=== PATIENT | male | born 1960 | race Caucasian/White ===

== ENCOUNTER 2020-03-11 11:16 | Emergency (ER) | payer MEDICARE, MEDICAID, SELFPAY ==
[2020-03-11 11:40] VITALS: BP 151/78; PULSE 71; RESP 16; TEMP 37; O2SAT 98; BMI 26.6
--- NOTE | 2020-03-11 12:21 | ED.SKABFB ---
HPI - Skin/Abscess/Foreign Bdy General Chief complaint: Skin/Abscess/Foreign Body <ESTER Pelaez - Last Filed: 03/11/20 12:36> Stated complaint: INFECTED LEFT BREAST NIPPLE,AND LIP SORE <ESTER Pelaez - Last Filed: 03/11/20 12:36> Time Seen by Provider: 03/11/20 12:14 <ESTER Pelaez - Last Filed: 03/11/20 12:36> Source: patient <ESTER Pelaez - Last Filed: 03/11/20 12:36> Mode of arrival: ambulatory <ESTER Pelaez - Last Filed: 03/11/20 12:36> Limitations: no limitations <ESTER Pelaez - Last Filed: 03/11/20 12:36> History of Present Illness HPI narrative: 59 y/o male presenting with 3 days of worsening left nipple pain. He states it is starting to get red and it is more tender each day. He denies injury. Hx previous nipple piercing to that side, not present for years. Denies shaving the area recently. Denies fever, chills. <ESTER Pelaez - Last Filed: 03/11/20 12:36> MD complaint: other (tender area) <ESTER Pelaez - Last Filed: 03/11/20 12:36> Onset (ago): day(s) (3) <ESTER Pelaez - Last Filed: 03/11/20 12:36> Tetanus up to date: yes <ESTER Pelaez - Last Filed: 03/11/20 12:36> Location: chest <ESTER Pelaez - Last Filed: 03/11/20 12:36> Severity: moderate <ESTER Pelaez - Last Filed: 03/11/20 12:36> Severity scale (1-10): 5 <ESTER Pelaez - Last Filed: 03/11/20 12:36> Quality: aching <ESTER Pelaez - Last Filed: 03/11/20 12:36> Pain Consistency: constant <ESTER Pelaez - Last Filed: 03/11/20 12:36> Relieving factors: none <ESTER Pelaez Last Filed: 03/11/20 12:36> Exacerbating factors: palpation <ESTER Pelaez Last Filed: 03/11/20 12:36> Context: none <ESTER Pelaez Last Filed: 03/11/20 12:36> Associated symptoms: denies other symptoms <ESTER Pelaez Last Filed: 03/11/20 12:36> Treatments prior to arrival: none <ESTER Pelaez Last Filed: 03/11/20 12:36> Related Data Home medications: Previous Rx's Medication Instructions Recorded cephalexin [Keflex] 500 mg PO QID 28 Days #112 cap 03/11/20 doxycycline monohydrate 100 mg PO BID 7 Days #14 cap 03/11/20 <ESTER Pelaez Last Filed: 03/11/20 12:36> Allergies/Adverse reactions: Allergies Allergy/AdvReac Type Severity Reaction Status Date / Time No Known Allergies Allergy Verified 03/23/20 10:22 [No Known Allergies*] <ESTER Pelaez Last Filed: 03/11/20 12:36> Review of Systems Review of Systems: Constitutional: No Fever, No Chills Cardiovascular: No Chest Pain, No SOB Respiratory: No Cough, No Sputum Gastrointestinal: No Nausea, No Vomiting, No Diarrhea, No abdominal Pain Musculoskeletal: No joint pain, No Myalgias Skin: No Skin Lesions, No rash Neuro: No Weakness, No Numbness, No Dizziness, No Headache Psych: + Anxiety/Panic, No Depression Heme/Lymph: No Bruising, No Lymphadenopathy <ESTER Pelaez Last Filed: 03/11/20 12:36> PMFSH Past Medical History Attestation statement: The following information was validated with the patient. <ESTER Pelaez Last Filed: 03/11/20 12:36> Medical History: Medical History (Updated 03/23/20 @ 10:47 by Trell Aviles MD) Abscess of skin and subcutaneous tissue Cluster headaches No known health problems <ESTER Pelaez Last Filed: 03/11/20 12:36> Social History Social History: Social History Smoking Status: Never smoker <ESTER Pelaez - Last Filed: 03/11/20 12:36> Physical Exam Vital Signs: Vital Signs: Last Vital Signs Temp 98.6 F 03/11/20 11:40 Pulse 71 03/11/20 11:40 Resp 16 03/11/20 11:40 BP 151/78 H 03/11/20 11:40 Pulse Ox 98 03/11/20 11:40 Body Mass Index 26.6 Appearance: Alert. Oriented X3. No acute distress. HEENT: normal inspection CVS: Normal heart rate and rhythm. Pulses normal. Chest wall: left nipple normal inspection without drainage, tender, erythematous, indurated area at 9 o'clock, 3cm, no palpable mass or area of fluctuance Respiratory: No respiratory distress. Lungs CTAB. Skin: Skin warm and dry. Normal skin color. Normal skin turgor. No rashes. Extremities: atraumatic, no LE edema. Neuro: Oriented X 3. No motor deficit. No sensory deficit. <ESTER Pelaez - Last Filed: 03/11/20 12:36> Vital Signs: Last Vital Signs Temp 98.6 F 03/11/20 11:40 Pulse 71 03/11/20 11:40 Resp 16 03/11/20 11:40 BP 151/78 H 03/11/20 11:40 Pulse Ox 98 03/11/20 11:40 Body Mass Index 26.6 <Nikolay Connor MD - Last Filed: 04/01/20 08:43> Course Course Course Narrative: 59 y/o male presenting with left breast redness, tenderness. Exam is not consistent with abscess. No skin changes to suggest cancer. Will treat for cellulitis, patient counseled on warning signs that should prompt emergent re-evaluation. Stable for discharge. <ESTER Pelaez - Last Filed: 03/11/20 12:36> I have reviewed the chart <Nikolay Connor MD - Last Filed: 04/01/20 08:43> MDM - Skin/Abscess/Foreign Bdy Differential Diagnosis Differential diagnosis: Likely abscess of skin or subcutaneous tissue, urticaria, allergic reaction to drug, cellulitis, eczema, insect bites and contact dermatitis <ESTER Pelaez - Last Filed: 03/11/20 12:36> Critical Care Time Critical Care Time Critical Care Time: No <ESTER Pelaez Last Filed: 03/11/20 12:36> Discharge Plan Discharge Clinical Impression: Cellulitis, Cold sore <ESTER Pelaez Last Filed: 03/11/20 12:36> Patient Disposition: Home, Self-Care <ESTER Pelaez - Last Filed: 03/11/20 12:36> Instructions: Cellulitis (ED) <ESTER Pelaez - Last Filed: 03/11/20 12:36> Additional Instructions: Take the prescribed antibiotics until they are gone. If you have worsening pain, redness, warmth or develop fevers call your doctor or come back to the ER for further evaluation. Use over the counter, Abreva for your cold sore on your lip. If it gets worse, call your doctor. <ESTER Pelaez - Last Filed: 03/11/20 12:36> Prescriptions: New doxycycline monohydrate 100 mg capsule 100 mg PO BID 7 Days Qty: 14 RF: 0 cephalexin [Keflex] 500 mg capsule 500 mg PO QID 28 Days Qty: 112 RF: 0 <ESTER Pelaez - Last Filed: 03/11/20 12:36> Interventions: ED Discharge Assessment Last Done: 03/11/20 12:43 <ESTER Pelaez - Last Filed: 03/11/20 12:36> Discharge Date/Time: 03/11/20 12:44 <ESTER Pelaez Last Filed: 03/11/20 12:36>
== END 2020-03-11 12:44 | disposition home or self-care (01) ==
LOC: HO.ED 12:27
PROVIDERS: Emergency Provider Emergency Medicine
DX: L03.313 Cellulitis of chest wall (principal); N64.4 Mastodynia; Z79.899 Other long term (current) drug therapy
CPT/HCPCS: 99283

== ENCOUNTER 2020-03-17 14:24 | Emergency (ER) | payer MEDICARE, MEDICAID, SELFPAY ==
[2020-03-17 14:44] VITALS: BP 136/70; PULSE 75; RESP 18; TEMP 36.9; O2SAT 95; BMI 26.6
--- NOTE | 2020-03-17 16:29 | PC.NURSE ---
dr bueno at bedside for exam, i&d and specimen collection
--- NOTE | 2020-03-17 16:34 | ED.SKABFB ---
HPI - Skin/Abscess/Foreign Bdy General Chief complaint: Skin/Abscess/Foreign Body Stated complaint: BLOOD INFECTION Time Seen by Provider: 03/17/20 15:23 Source: patient Mode of arrival: ambulatory Limitations: no limitations History of Present Illness HPI narrative: patient Came with left breast swelling and redness which is going on for last 1 week from a unknown injury patient was seen here on 03/11 and started on doxycycline and Keflex since yesterday patient noticed swelling is bigger and redness has increased with small amount of pus discharge patient denies any fever Related Data Previous Rx's Medication Instructions Recorded cephalexin [Keflex] 500 mg PO QID 28 Days #112 cap 03/11/20 doxycycline monohydrate 100 mg PO BID 7 Days #14 cap 03/11/20 Allergies Allergy/AdvReac Type Severity Reaction Status Date / Time No Known Allergies Allergy Unverified 12/24/19 14:53 [No Known Allergies*] Review of Systems Review of Systems: Yes all other systems are reviewed and are negative PMFSH Past Medical History Medical History No known health problems Social History Social History Advance Directives: No Advance Directives Information Provided: Yes Physical Exam Vital Signs: Vital Signs: Last Vital Signs Temp 98.4 F 03/17/20 14:44 Pulse 75 03/17/20 14:44 Resp 18 03/17/20 14:44 BP 136/70 03/17/20 14:44 Pulse Ox 95 03/17/20 14:44 Body Mass Index 26.6 Const: General: cooperative, comfortable and no acute distress Orientation/consciousness: patient oriented x3 Chest: Chest/axillae images: 1. small abscess 3 cm in diameter with redness, pointing Resp: Effort & Inspection: normal respiratory effort Auscultation: clear to auscultation bilaterally Neuro: General: patient oriented x3 Course Course Course Narrative: patient has small abscess pointing left breast which was easily squeezed out no more fluctuancy noticed patient to continue doxycycline and Keflex and advised to follow with surgeon for further evaluation and treatment Procedures Abscess I/D Site: chest Side (if applicable): left Amount of fluid expressed (mL): 2 Sent for culture/gram staining?: Yes Discharge Plan Discharge Clinical Impression: Abscess of skin or subcutaneous tissue Patient Disposition: Home, Self-Care Instructions: Abscess (ED) Additional Instructions: continue antibiotics as advised warm packs follow up with surgeon Prescriptions: No Action doxycycline monohydrate 100 mg capsule 100 mg PO BID 7 Days Qty: 14 RF: 0 cephalexin [Keflex] 500 mg capsule 500 mg PO QID 28 Days Qty: 112 RF: 0 Referrals: Trell Aviles MD [Physician] - 3 days Discharge Date/Time: 03/17/20 16:39
[2020-03-17 16:37] VITALS: BP 141/88; PULSE 69; RESP 18; TEMP 36.9; O2SAT 96
== END 2020-03-17 16:39 | disposition home or self-care (01) ==
PROVIDERS: Emergency Provider Internal Medicine
DX: N61.1 Abscess of the breast and nipple (principal)
CPT/HCPCS: 10060; 87071; 87205; 99283

== ENCOUNTER → 2020-03-23 10:13 | Outpatient (BNVA) | payer MEDICARE, MEDICAID, SELFPAY | PROVIDERS: Visit Provider Surgery | DX: L02.91 Cutaneous abscess, unspecified (principal) | CPT/HCPCS: 99202 ==

== ENCOUNTER 2020-11-07 10:49 | Emergency (ER) | payer OTHER, MEDICARE, MEDICAID, SELFPAY ==
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
[2020-11-07 12:08] VITALS: BP 145/96; PULSE 62; RESP 18; TEMP 37.2; O2SAT 99; BMI 25.1
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
== END 2020-11-07 16:37 | disposition home or self-care (01) ==
PROVIDERS: Emergency Provider Emergency Medicine
DX: S39.012A Strain of muscle, fascia and tendon of lower back, initial encounter (principal); V43.52XA Car driver injured in collision with other type car in traffic accident, initial encounter; Y93.89 Activity, other specified; Y92.414 Local residential or business street as the place of occurrence of the external cause; Y99.9 Unspecified external cause status
CPT/HCPCS: 72070; 99283

== ENCOUNTER 2020-11-14 09:25 | Outpatient (REF) | payer OTHER, MEDICARE, MEDICAID, SELFPAY ==
--- NOTE | ~2020-11-14 | XR_ITS ---
EXAMINATION: XR CHEST CLINICAL INFORMATION: COPD. COMPARISON: None TECHNIQUE: 2 views of the chest were obtained. FINDINGS: Some probable chronic markings are present here. There is no convincing evidence for an acute infiltrate. There is no effusion. The heart size is within normal limits. The hilar structures do not appear pathologically enlarged. On the lateral study, there is a rounded structure overlying the lower thoracic vertebrae. This measures 2.9 cm. This could represent a prominent osteophyte. I would recommend CT to exclude a lesion. XR/XR chest 2V IMPRESSION: As described above, I must consider a basilar lung lesion based on the lateral study. CT is recommended for full evaluation. Otherwise no acute finding.
[2020-11-14 10:07] LABS: MANUAL DIFF FLAG NO
[2020-11-14 10:13] LABS: Basophils Percent Auto 0.3 % (0-2); Eosinophils Absolute Auto 0.1 X10*3/uL (0.0-0.4); Eosinophils Percent Auto 0.7 % (0-4); Hematocrit 42.1 % (42-52); Imm Gran Abs Auto 0.03 X10*3/uL (0.00-0.03); Imm Gran Pct Auto 0.3 % (0.0-0.4); Lymphocytes Absolute Auto 2.5 X10*3/uL (1.2-4.9); Lymphocytes Percent Auto 23.5 % (20-40); Mean Corpuscular HGB Conc 33.3 g/dl (31.0-36.0); Mean Corpuscular Hemoglobin 29.4 pg (27.0-33.0); Mean Corpuscular Volume 88.4 fL (80-98); Monocytes Absolute Auto 0.6 X10*3/uL (0.1-1.2); Monocytes Percent Auto 5.8 % (2-11); Neutrophils Absolute Auto 7.3 X10*3/uL (2.0-8.3); Neutrophils Percent Auto 69.4 % (45-73); Platelet Count 343 X10*3/uL (160-400); Red Blood Count 4.76 X10*6/uL (4.60-5.80); Red Cell Distribution Width 13.5 % (11.0-16.0); White Blood Count 10.4 X10*3/uL (4.8-10.8)
[2020-11-14 10:33] LABS: Alanine Aminotransferase 19 U/L (0-40); Albumin Level 4.4 g/dL (3.5-5.0); Alkaline Phosphatase 84 U/L (39-117); Anion Gap 11 (12-20); Aspartate Amino Transferase 19 U/L (5-37); Bilirubin Total 1.3 mg/dL (0.0-1.0); Blood Urea Nitrogen 16 mg/dL (9-16); Carbon Dioxide 28 mmol/L (22-29); Chloride 103 mmol/L (96-108); Cholesterol 215 mg/dL; Estimated Glomerular Filt Rate > 60; Glucose Fasting 118 mg/dL (60-99); HDL Cholesterol 44 mg/dL; LDL Cholesterol Calculated 145 mg/dl; Potassium 4.2 mmol/L (3.3-5.1); Sodium 138 mmol/L (135-145); Total Protein 6.5 g/dL (6.5-8.0); Triglycerides 130 mg/dL
[2020-11-14 10:58] LABS: Prostate Specific Antigen 2.91 ng/mL (<0.05-4.0)
== END 2020-11-14 09:26 | disposition home or self-care (01) ==
LOC: HO.LAB 09:25
PROVIDERS: PCP Internal Medicine Medical Oncology; Visit Provider Internal Medicine Medical Oncology
DX: Z12.5 Encounter for screening for malignant neoplasm of prostate (principal); J44.9 Chronic obstructive pulmonary disease, unspecified; N40.0 Benign prostatic hyperplasia without lower urinary tract symptoms
CPT/HCPCS: 36415; 71046; 80053; 80061; 84153; 85025

== ENCOUNTER 2021-01-12 10:32 | Outpatient (REF) | payer MEDICARE, MEDICAID, SELFPAY ==
[2021-01-12 10:47] LABS: MANUAL DIFF FLAG NO
[2021-01-12 12:08] LABS: Basophils Percent Auto 0.5 % (0-2); Eosinophils Absolute Auto 0.1 X10*3/uL (0.0-0.4); Eosinophils Percent Auto 1.6 % (0-4); Hematocrit 45.6 % (42-52); Hemoglobin 15.4 g/dl (14.0-18.0); Imm Gran Abs Auto 0.03 X10*3/uL (0.00-0.03); Imm Gran Pct Auto 0.3 % (0.0-0.4); Lymphocytes Absolute Auto 2.6 X10*3/uL (1.2-4.9); Lymphocytes Percent Auto 28.7 % (20-40); Mean Corpuscular HGB Conc 33.8 g/dl (31.0-36.0); Mean Corpuscular Hemoglobin 30.3 pg (27.0-33.0); Mean Corpuscular Volume 89.8 fL (80-98); Mean Platelet Volume 10.1 fL (9.4-12.4); Monocytes Absolute Auto 0.6 X10*3/uL (0.1-1.2); Monocytes Percent Auto 6.2 % (2-11); Neutrophils Absolute Auto 5.6 X10*3/uL (2.0-8.3); Neutrophils Percent Auto 62.7 % (45-73); Platelet Count 336 X10*3/uL (160-400); Red Blood Count 5.08 X10*6/uL (4.60-5.80); Red Cell Distribution Width 13.8 % (11.0-16.0); White Blood Count 8.9 X10*3/uL (4.8-10.8)
[2021-01-12 12:34] LABS: Alanine Aminotransferase 26 U/L (0-40); Albumin Level 4.2 g/dL (3.5-5.0); Alkaline Phosphatase 87 U/L (39-117); Anion Gap 10 (12-20); Aspartate Amino Transferase 17 U/L (5-37); Bilirubin Total < 0.2 mg/dL (0.0-1.0); Blood Urea Nitrogen 13 mg/dL (9-16); Calcium 9.3 mg/dL (8.4-10.2); Carbon Dioxide 28 mmol/L (22-29); Chloride 106 mmol/L (96-108); Estimated Glomerular Filt Rate > 60; Glucose Random 152 mg/dL (60-115); Potassium 4.7 mmol/L (3.3-5.1); Sodium 139 mmol/L (135-145); Total Protein 6.5 g/dL (6.5-8.0)
[2021-01-12 13:06] LABS: Erythrocyte Sedimentation Rate 2 MM/HR (0-15)
== END 2021-01-12 10:33 | disposition home or self-care (01) ==
LOC: HO.LAB 10:32
PROVIDERS: PCP Internal Medicine Medical Oncology; Visit Provider Internal Medicine Medical Oncology
DX: E66.3 Overweight (principal)
CPT/HCPCS: 36415; 80053; 85025; 85652

== ENCOUNTER 2021-01-25 10:01 | Outpatient (REF) | payer OTHER, MEDICARE, MEDICAID, SELFPAY ==
--- NOTE | ~2021-01-25 | CT_ITS ---
EXAMINATION: CT CHEST WITH CONTRAST CLINICAL INFORMATION: Localized swelling, mass or lump of the trunk. COMPARISON: Previous chest x-ray November 2020. TECHNIQUE: Multidetector volumetric CT imaging of the chest was obtained after the administration of 65 mL of Omnipaque 350 intravenous contrast without immediate adverse reactions. Axial MIP volume rendering provided. Sagittal and coronal reformatted images were obtained. This CT examination was performed using dose optimization techniques as appropriate, variously including the following: *Automated exposure control. *Adjustment of mA and/or kV according to patient size (this includes techniques or standardized protocols for targeted exams where dose is matched to indication/reason for exam; i.e. extremities or head). *Use of iterative reconstruction technique. DLP: 141 mGy-cm FINDINGS: STEM SHAPER: Unremarkable. LUNGS: There is a 2 mm peripheral right upper lobe nodule axial image 7. There is a 3 mm peripheral or subpleural right middle lobe nodule axial image 127 series 7. There is a 3 mm peripheral or subpleural right lower lobe nodule near the major fissure axial image 142 series 7. The lungs are otherwise clear. MEDIASTINUM: There is mild coronary artery calcification. The mediastinum is otherwise normal. PLEURA: There is no pleural effusion. No pleural mass or thickening. AXILLA: No lymphadenopathy. UPPER ABDOMEN: Unremarkable. OSSEOUS STRUCTURES: There are degenerative changes of the spine. There are degenerative changes at the sternomanubrial joints, right greater than left. CT/CT chest w con IMPRESSION: 1. Small pulmonary nodules or micronodules. According to the UPDATED 2017 Fleischner Society recommendations, the advised follow up imaging for less than 6 mm nodule: Low risk, no chest CT follow up and high risk, optional chest CT follow up in one year. 2. Mild coronary artery calcification. 3. No chest wall mass seen.
[2021-01-25] MEDS: iohexoL 350 MG/ML 100 ML INFUS..BTL IV (10:47)
== END 2021-01-25 10:02 | disposition home or self-care (01) ==
LOC: HO.CT 10:01
PROVIDERS: PCP Internal Medicine Medical Oncology; Visit Provider Internal Medicine Medical Oncology
DX: R22.2 Localized swelling, mass and lump, trunk (principal)
CPT/HCPCS: 71260; Q9967

== ENCOUNTER → 2021-05-02 14:26 | Outpatient (BNVA) | payer MEDICARE, MEDICAID, SELFPAY | PROVIDERS: PCP Internal Medicine Medical Oncology; Visit Provider Nurse Practitioner Family | DX: M47.27 Other spondylosis with radiculopathy, lumbosacral region (principal) | CPT/HCPCS: 99202 ==

== ENCOUNTER 2021-05-23 14:25 | Outpatient (REF) | payer MEDICARE, MEDICAID, SELFPAY ==
--- NOTE | ~2021-05-23 | XR_ITS ---
EXAMINATION: PRE-MRI ORBITS CLINICAL INFORMATION: Medical visualized 20 years ago. COMPARISON: None TECHNIQUE: 3 views. FINDINGS: There is no radiopaque metallic foreign body seen in the orbits. There is radiopaque artificial tooth or dental filling in the left upper maxilla. XR/XR pre mri screening IMPRESSION: With no radiopaque foreign body seen in the orbits.
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
== END 2021-05-23 14:26 | disposition home or self-care (01) ==
LOC: HO.MRI 14:25
PROVIDERS: Visit Provider Nurse Practitioner Family
DX: M47.27 Other spondylosis with radiculopathy, lumbosacral region (principal)
CPT/HCPCS: 72148

== ENCOUNTER 2021-05-30 12:44 | Outpatient (REF) | payer MEDICARE, MEDICAID, SELFPAY ==
--- NOTE | ~2021-05-30 | MR_ITS ---
EXAMINATION: MR CERVICAL SPINE WITHOUT CONTRAST CLINICAL INFORMATION: Neuropathic pain down both arms. Assess for herniated disc. COMPARISON: There are no prior studies available for comparison. TECHNIQUE: MRI of the cervical spine was obtained using routine sequences without contrast. FINDINGS: VERTEBRAL BODIES AND PARASPINAL SOFT TISSUES: There is mild reversal of the cervical lordosis at C5-C6. There is a mild anterolisthesis of C7 on T1. There is marked narrowing of intervertebral disc height at C6-C7 and there are degenerative endplate contour changes at multiple levels with mild to moderate edematous signal particularly toward the right. Mild edematous endplate signal changes are seen at C4-C5 and C5-C6. There is also moderate narrowing of intervertebral disc height at C6-C7. The vertebral bodies of normal height and contour no fractures are demonstrated. Overall, marrow signal is homogenous. The visualized regional soft tissue structures are unremarkable. CERVICOMEDULLARY JUNCTION AND VISUALIZED POSTERIOR FOSSA: The craniocervical and posterior fossa structures are normal. Accounting for artifact, spinal cord signal appears normal. SPINAL LEVELS: C2-C3: There is mild left facet arthropathy. There is a small right paracentral disc protrusion with minimal mass effect on the thecal sac. There is no spinal cord compression or central stenosis. There is mild left foraminal narrowing. C3-C4: There is mild bilateral facet arthropathy. There is a broad-based posterior disc protrusion which effaces CSF ventral to the spinal cord but there is no spinal cord compression or central stenosis. There are uncovertebral osteophytes, and there is mild bilateral foraminal narrowing. C4-C5: There is mild bilateral facet arthropathy. There is a shallow posterior disc protrusion which is slightly more prominent on the right and there is minimal distortion of the CSF ventral to the spinal cord. There is no spinal cord compression or central stenosis. There are uncovertebral osteophytes and there is moderate right foraminal narrowing. C5-C6: The facet joints appear normal. There is a broad-based posterior disc protrusion which effaces CSF ventral to the spinal cord, with mild flattening of the spinal cord. There is mild to moderate central stenosis. There are uncovertebral osteophytes and there is severe bilateral foraminal narrowing., C6-C7: The facet joints appear normal. There is a prominent broad-based posterior disc protrusion with effacement of CSF and with mild flattening of the cord. There is moderate central stenosis. There are uncovertebral osteophytes, and there is severe right and moderate to severe left foraminal narrowing. C7-T1: There is mild bilateral facet arthropathy. Posterior disc contour is normal. There is no central stenosis or foraminal narrowing. MR/MR cervical spine wo con IMPRESSION: 1. At C5-C6 there is a broad-based posterior disc protrusion with mild flattening of the cord and there is mild to moderate central stenosis. There is severe bilateral foraminal narrowing. 2. At C6-C7 there is a prominent broad-based posterior disc protrusion without spinal cord compression, but there is moderate central stenosis. There is severe right and moderate to severe left foraminal narrowing. 3. At C4-C5 there is a shallow posterior disc protrusion without spinal cord compression or central stenosis. There is moderate right foraminal narrowing.
== END 2021-05-30 12:45 | disposition home or self-care (01) ==
LOC: HO.MRI 12:44
PROVIDERS: Visit Provider Internal Medicine Medical Oncology
DX: M79.2 Neuralgia and neuritis, unspecified (principal)
CPT/HCPCS: 72141

== ENCOUNTER 2022-05-11 12:59 | Outpatient (REF) | payer MEDICARE, MEDICAID, SELFPAY ==
[2022-05-11 13:23] LABS: MANUAL DIFF FLAG NO
[2022-05-11 13:47] LABS: Basophils Absolute Auto 0.1 X10*3/uL (0.0-0.2); Basophils Percent Auto 0.6 % (0-2); Eosinophils Absolute Auto 0.1 X10*3/uL (0.0-0.4); Eosinophils Percent Auto 1.3 % (0-4); Hematocrit 45.1 % (42.0-52.0); Hemoglobin 14.9 g/dl (14.0-18.0); Imm Gran Abs Auto 0.02 X10*3/uL (0.00-0.03); Imm Gran Pct Auto 0.3 % (0.0-0.4); Lymphocytes Absolute Auto 1.7 X10*3/uL (1.2-4.9); Lymphocytes Percent Auto 21.7 % (20-40); Mean Corpuscular Hemoglobin 29.2 pg (27.0-33.0); Mean Corpuscular Volume 88.3 fL (80.0-98.0); Mean Platelet Volume 9.6 fL (9.4-12.4); Monocytes Absolute Auto 0.9 X10*3/uL (0.1-1.2); Monocytes Percent Auto 11.8 % (2-11); Neutrophils Absolute Auto 5.1 x10*3/uL (2.0-8.3); Neutrophils Percent Auto 64.3 % (45-73); Platelet Count 307 X10*3/uL (160-400); Red Blood Count 5.11 X10*6/uL (4.60-5.80); Red Cell Distribution Width 14.1 % (11.0-16.0); White Blood Count 7.9 X10*3/uL (4.8-10.8)
[2022-05-11 14:45] LABS: Alanine Aminotransferase 23 U/L (0-40); Albumin Level 4.1 g/dL (3.5-5.0); Alkaline Phosphatase 117 U/L (39-117); Anion Gap 12 (12-20); Aspartate Amino Transferase 20 U/L (5-37); Bilirubin Total 1.2 mg/dL (0.0-1.0); Blood Urea Nitrogen 10 mg/dL (9-16); Calcium 9.2 mg/dL (8.4-10.2); Carbon Dioxide 31 mmol/L (22-29); Chloride 100 mmol/L (96-108); Cholesterol 250 mg/dL; Estimated Glomerular Filt Rate > 60; Glucose Random 98 mg/dL (60-115); HDL Cholesterol 46 mg/dL; LDL Cholesterol Calculated 163 mg/dl; Potassium 4.7 mmol/L (3.3-5.1); Sodium 138 mmol/L (135-145); Total Protein 6.4 g/dL (6.5-8.0); Triglycerides 205 mg/dL
[2022-05-11 15:08] LABS: PSA,Total (Free>4and<10) 1.55 ng/mL (0.00-4.00); Vitamin B12 214 pg/mL (200-900)
== END 2022-05-11 13:00 | disposition home or self-care (01) ==
LOC: HO.LAB 12:59
PROVIDERS: PCP Internal Medicine Medical Oncology; Visit Provider Internal Medicine Medical Oncology
DX: Z12.5 Encounter for screening for malignant neoplasm of prostate (principal); N40.0 Benign prostatic hyperplasia without lower urinary tract symptoms; J44.9 Chronic obstructive pulmonary disease, unspecified; R41.3 Other amnesia; E66.3 Overweight; G44.019 Episodic cluster headache, not intractable
CPT/HCPCS: 36415; 80053; 80061; 82306; 82607; 84153; 85025

== ENCOUNTER 2022-06-05 18:48 | Outpatient (REF) | payer MEDICARE, MEDICAID, SELFPAY ==
--- NOTE | ~2022-06-05 | MR_ITS ---
EXAMINATION: MR CERVICAL SPINE WITHOUT CONTRAST MR LUMBAR SPINE WITHOUT CONTRAST CLINICAL INFORMATION: Neuropathy, radiculopathy COMPARISON: None TECHNIQUE: MRI of the cervical and lumbar spine was obtained using routine sequences without contrast. FINDINGS: CERVICAL SPINE: The craniocervical junction is intact. The cervical lordosis is preserved. Trace anterolisthesis of C4 and C5 and trace retrolisthesis of C6 on C7. Vertebral body heights are normal without acute compression fracture. No suspicious osseous lesion. There is diffuse disc desiccation with moderate to severe C5-C6 and to a lesser extent C6-C7 disc height loss. Dominantly type II Modic endplate changes at C5-C6 and mixed type I and II Modic endplate changes at C6-C7. There are multilevel degenerative changes with level by level detail as follows: C2-C3: Asymmetric left facet arthrosis and left uncovertebral spurring. No spinal canal or significant neural foraminal stenosis. C3-C4: Small disc osteophyte complex with left greater than right uncovertebral joint hypertrophy and left greater than right facet arthrosis. No spinal canal stenosis. Mild right greater than left neural foraminal stenosis. C4-C5: Small disc osteophyte complex with uncovertebral joint hypertrophy and mild bilateral facet hypertrophy. No spinal canal stenosis. Moderate right without significant left neural foraminal stenosis. C5-C6: Small disc osteophyte complex with uncovertebral joint hypertrophy and mild bilateral facet arthrosis. No spinal canal stenosis. Severe right and moderate to severe left neural foraminal stenosis. C6-C7: Trace retrolisthesis with disc osteophyte complex and uncovertebral joint hypertrophy with mild bilateral facet arthrosis. Mild to moderate spinal canal stenosis with contact and flattening along the ventral cord. Severe bilateral neural foraminal stenosis. C7-T1: Small annular disc bulge with mild bilateral facet arthrosis. No spinal canal or significant neural foraminal stenosis. The cervical spinal cord is normal in signal and morphology. No epidural fluid collection, mass, or hematoma. No significant abnormalities of the paraspinal musculature. The flow voids of the major cervical vessels are maintained. The visualized intracranial structures are normal. Cystic lesion associated with a right anterior maxillary tooth, likely a prominent periapical lucency. No demonstrated abnormalities in the visualized neck. LUMBAR SPINE: Normal lumbar lordosis is preserved. There is trace retrolisthesis of L1 on L2 and L5 on S1. Vertebral body heights are maintained. There is no suspicious osseous lesion. There is multilevel disc desiccation with mild to moderate L1-L2 and L5-S1 disc height loss. Multilevel mild fatty endplate changes anteriorly and edematous endplate changes, most pronounced on the right at L5-S1. A 7 mm T1 hypointense and T2/STIR hyperintense lesion within the L5 vertebral body with minimal interdigitating fat inferiorly is favored to reflect a lipid poor hemangioma. Multilevel anterior osteophytic spurring is seen.There are multilevel degenerative changes with level by level detail as follows: L1-L2: Small annular disc bulge with superimposed right foraminal/far lateral disc protrusion and mild bilateral facet hypertrophy and ligamentum flavum thickening. Mild spinal canal stenosis and abutment along the left greater than right traversing L2 nerve roots. Mild right without left neural foraminal encroachment. L2-L3: Mild bilateral facet hypertrophy and ligamentum flavum thickening. No spinal canal or neural foraminal stenosis. L3-L4: Right foraminal/far lateral disc protrusion superimposed on a trace annular disc bulge. Mild bilateral facet hypertrophy. No spinal canal or left neural foraminal stenosis. Mild right neural foraminal encroachment. L4-L5: Small annular disc bulge with mild to moderate facet hypertrophy. No spinal canal stenosis. Mild right without significant left neural foraminal stenosis. L5-S1: Annular disc bulge with superimposed broad-based left subarticular disc protrusion with annular fissure and prominent left ventral lateral disc osteophyte. Moderate facet arthrosis. No spinal canal stenosis, noting asymmetric left subarticular zone stenosis and mass effect along the traversing left and likely abutment along the traversing right S1 nerve roots Severe left neural foraminal stenosis with compression of the exiting left L5 nerve root. Mild right neural foraminal stenosis. The conus medullaris terminates at the level of L1. The distal spinal cord is normal in appearance. . No epidural fluid collection, hematoma, or mass. No significant abnormalities of the paraspinal musculature. Limited evaluation of the intra-abdominal structures without significant abnormalities. The abdominal aorta is of normal contour and caliber. MR/MR cervical spine wo con IMPRESSION: CERVICAL SPINE: 1. Multilevel cervical spondylosis as described, most notable at C6-C7 where there is mild to moderate spinal canal stenosis and severe bilateral neural foraminal stenosis. No other significant spinal canal stenosis. Neural foraminal stenosis is severe on the right and moderate to severe on the left at C5-C6. 2. No cord signal abnormality. LUMBAR SPINE: 1. Multilevel lumbar spondylosis as described, worst at L5-S1 where there is severe left neural foraminal stenosis with compression of the exiting left L5 nerve root and asymmetric left subarticular zone stenosis with mass effect along the left S1 nerve root. 2. At L1-L2, there is mild spinal canal stenosis and abutment of the left greater than right L2 nerve roots. 3. 7 mm T1 hypointense and T2/STIR hyperintense lesion in the L5 vertebral body is favored to reflect a lipid poor hemangioma.
== END 2022-06-05 18:49 | disposition home or self-care (01) ==
LOC: HO.MRI 18:48
PROVIDERS: PCP Internal Medicine Medical Oncology; Visit Provider Internal Medicine
DX: M47.22 Other spondylosis with radiculopathy, cervical region (principal); G62.9 Polyneuropathy, unspecified
CPT/HCPCS: 72141; 72148

== ENCOUNTER → 2022-08-29 13:39 | Outpatient (BNVA) | payer MEDICARE, MEDICAID, SELFPAY | PROVIDERS: PCP Internal Medicine Medical Oncology; Visit Provider Anesthesiology | DX: M47.27 Other spondylosis with radiculopathy, lumbosacral region (principal); M47.816 Spondylosis without myelopathy or radiculopathy, lumbar region | CPT/HCPCS: 99212 ==

== ENCOUNTER 2022-11-19 10:23 | Outpatient (REF) | payer MEDICARE, MEDICAID, SELFPAY ==
[2022-11-19 10:34] LABS: MANUAL DIFF FLAG NO
[2022-11-19 10:48] LABS: Basophils Absolute Auto 0.1 X10*3/uL (0.0-0.2); Basophils Percent Auto 0.6 % (0-2); Eosinophils Absolute Auto 0.5 X10*3/uL (0.0-0.4); Eosinophils Percent Auto 4.6 % (0-4); Hematocrit 43.4 % (42.0-52.0); Hemoglobin 14.2 g/dl (14.0-18.0); Imm Gran Abs Auto 0.04 X10*3/uL (0.00-0.03); Imm Gran Pct Auto 0.3 % (0.0-0.4); Lymphocytes Absolute Auto 2.8 X10*3/uL (1.2-4.9); Lymphocytes Percent Auto 23.3 % (20-40); Mean Corpuscular HGB Conc 32.7 g/dl (31.0-36.0); Mean Corpuscular Volume 91.8 fL (80.0-98.0); Mean Platelet Volume 9.5 fL (9.4-12.4); Monocytes Absolute Auto 0.7 X10*3/uL (0.1-1.2); Monocytes Percent Auto 5.5 % (2-11); Neutrophils Absolute Auto 7.8 x10*3/uL (2.0-8.3); Neutrophils Percent Auto 65.7 % (45-73); Platelet Count 356 X10*3/uL (160-400); Red Blood Count 4.73 X10*6/uL (4.60-5.80); Red Cell Distribution Width 13.4 % (11.0-16.0); White Blood Count 11.9 X10*3/uL (4.8-10.8)
[2022-11-19 11:59] LABS: Alanine Aminotransferase 24 U/L (0-40); Albumin Level 3.9 g/dL (3.5-5.0); Alkaline Phosphatase 89 U/L (39-117); Anion Gap 10 (12-20); Aspartate Amino Transferase 26 U/L (5-37); Bilirubin Total 0.2 mg/dL (0.0-1.0); Blood Urea Nitrogen 11 mg/dL (9-16); Calcium 9.3 mg/dL (8.4-10.2); Carbon Dioxide 29 mmol/L (22-29); Chloride 105 mmol/L (96-108); Cholesterol 219 mg/dL; Estimated Glomerular Filt Rate > 60; Glucose Fasting 149 mg/dL (60-99); HDL Cholesterol 46 mg/dL; LDL Cholesterol Calculated 125 mg/dl; Potassium 4.4 mmol/L (3.3-5.1); Sodium 140 mmol/L (135-145); Total Protein 6.7 g/dL (6.5-8.0); Triglycerides 241 mg/dL
[2022-11-19 12:11] LABS: Prostate Specific Antigen 1.25 ng/mL (<0.05-4.0)
== END 2022-11-19 10:24 | disposition home or self-care (01) ==
LOC: HO.LAB 10:23
PROVIDERS: PCP Internal Medicine Medical Oncology; Visit Provider Internal Medicine Medical Oncology
DX: Z00.00 Encounter for general adult medical examination without abnormal findings (principal); Z12.5 Encounter for screening for malignant neoplasm of prostate; N40.0 Benign prostatic hyperplasia without lower urinary tract symptoms; E66.3 Overweight
CPT/HCPCS: 36415; 80053; 80061; 84153; 85025

== ENCOUNTER 2023-10-28 12:37 | Outpatient (AMB) | payer MEDICARE, MEDICAID, SELFPAY ==
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
[2023-10-28 12:46] VITALS: BP 142/80; PULSE 66; RESP 17; O2SAT 96; BMI 27.2
== END 2023-10-28 13:53 | disposition home or self-care (01) ==
PROVIDERS: PCP Internal Medicine Medical Oncology; Visit Provider Psychiatry & Neurology Neurology
DX: R41.89 Other symptoms and signs involving cognitive functions and awareness (principal); G44.009 Cluster headache syndrome, unspecified, not intractable; R06.83 Snoring; G47.10 Hypersomnia, unspecified
CPT/HCPCS: 99204; G2211

== ENCOUNTER → 2023-10-28 12:37 | Outpatient (BNVA) | payer MEDICARE, MEDICAID, SELFPAY | PROVIDERS: PCP Internal Medicine Medical Oncology; Visit Provider Psychiatry & Neurology Neurology | DX: R41.89 Other symptoms and signs involving cognitive functions and awareness (principal); R06.83 Snoring; G44.009 Cluster headache syndrome, unspecified, not intractable; G47.10 Hypersomnia, unspecified | CPT/HCPCS: 99202 ==

== ENCOUNTER → 2023-12-11 09:05 | Outpatient (REF) | payer MEDICARE, MEDICAID, SELFPAY | LOC: HO.SL 09:05 | PROVIDERS: PCP Internal Medicine Medical Oncology; Visit Provider Psychiatry & Neurology Neurology | DX: R06.83 Snoring (principal); G47.10 Hypersomnia, unspecified | CPT/HCPCS: 95806 ==

== ENCOUNTER → 2023-12-11 09:19 | Outpatient (BNV) | payer MEDICARE, MEDICAID, SELFPAY | PROVIDERS: PCP Internal Medicine Medical Oncology; Visit Provider Psychiatry & Neurology Neurology | DX: R06.83 Snoring (principal); G47.10 Hypersomnia, unspecified | CPT/HCPCS: 95806 ==

== ENCOUNTER → 2024-01-06 17:56 | Outpatient (BNV) | payer MEDICARE, MEDICAID, SELFPAY | PROVIDERS: PCP Internal Medicine Medical Oncology; Visit Provider Radiology Diagnostic Radiology | DX: R41.89 Other symptoms and signs involving cognitive functions and awareness (principal) | CPT/HCPCS: 70551 ==

== ENCOUNTER 2024-01-06 17:57 | Outpatient (REF) | payer MEDICARE, MEDICAID, SELFPAY ==
--- NOTE | ~2024-01-06 | MR_ITS ---
EXAMINATION: MR BRAIN WITHOUT CONTRAST CLINICAL INFORMATION: Cognitive functions decline. COMPARISON: None available. TECHNIQUE: MRI of the brain was obtained using routine sequences without contrast. FINDINGS: Submitted for interpretation on 02/07/2024. Macrocystic encephalomalacia with associated hyperintense T2 FLAIR signal likely gliosis and susceptibility related to old blood products, right frontal orbital gyrus and deep white matter and to a lesser extent rectus gyrus. Hyperintense T2 FLAIR signal within the subcortical deep white matter of the left orbital frontal gyrus. No restricted diffusion. No acute intracranial hemorrhage, mass effect, midline shift, hydrocephalus or herniation. Garza-white matter differentiation is normal. No signal abnormality or volume loss in the hippocampi. Posterior cranial fossa contents demonstrated no acute intracranial hemorrhage or mass effect. Sellar/suprasellar region is normal. Craniocervical junction is intact and normal. Flow-void signal within the main cerebral vessels is normal. MR/MR head/brain wo con IMPRESSION: No acute brain abnormality. 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 Electronically signed by: Tay Jaramillo MD 02/07/2024 09:18 AM EDT
== END 2024-01-06 17:58 | disposition home or self-care (01) ==
LOC: HO.MRI 17:57
PROVIDERS: PCP Internal Medicine Medical Oncology; Visit Provider Psychiatry & Neurology Neurology
DX: R41.89 Other symptoms and signs involving cognitive functions and awareness (principal)
CPT/HCPCS: 70551

== ENCOUNTER 2024-04-29 10:28 | Outpatient (REF) | payer MEDICARE, SELFPAY ==
--- NOTE | ~2024-04-29 | FL_ITS ---
EXAMINATION: Modified Barium Swallow CLINICAL INFORMATION: Dysphagia COMPARISON: None TECHNIQUE: Modified barium swallow was performed under lateral fluoroscopy with patient in standing position. Barium mixed with solids and liquids of different consistencies was administered by the speech pathologist. Examination was recorded in the fluoroscopy suite. FINDINGS: Trace laryngeal penetration is seen with thin and nectar thick barium. No subglottic aspiration was observed. FLUOROSCOPY TIME: 1 minute 5 seconds Number of Spot Images: N/A DOSE AREA PRODUCT: 487.9 uGy-m2 (microgray-meter squared) FL/FL Modified Barium Swallow IMPRESSION: 1. Trace laryngeal penetration with thin and nectar thick consistency barium. No subglottic aspiration was observed. Refer to the speech therapy report for further clarification This procedure was performed by Guillermo Gunter PA-C, and supervised by Dr. Javier Electronically signed by: Ravi Javier MD 04/29/2024 03:30 PM [facility]
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
--- OUTSIDE RECORDS SUMMARY | 2024-04-29 11:37 | XMS_ITS | Clinical Summary ---
Author Organization [facility] it Address [address] [place] [address] Care Team Providers Care Assembler Show Motor Name Role Phone Unavailable Primary Care Provider Unavailabl e Family History Relation Name Status Comments Father Mother Social History Tobacco Use Types Packs/Day Years Used Date Smoking Tobacco: Every Day Cigarettes Smokeless Tobacco: Never Sex and Gender Information Value Date Recorded Sex Assigned at Not on file Gender Identity Not on file Sexual Orientation Not on file Obstetrics History Plan of Treatment Health Maintenance Due Date Last Done Comments Pneumococcal Vaccine: Pediatrics (0 to 5 Years) and At-Risk Patients (6 to 64 Years) (1 of 2 - PCV) 06/19/1967 DTaP,Tdap,and Td Vaccines (1 - Tdap) 1980 Zoster Vaccines (1 of 2) 06/19/2011 Cholesterol Screening (Lipid Panel) 03/10/2022 Colorectal Cancer Screening: Colonoscopy 03/10/2022 Depression Screening 03/10/2022 HIV Screening 03/10/2022 Hepatitis C Screening 03/10/2022 Social Influencers of Health Screening 03/10/2022 COVID-19 Vaccine (4 - 2023-2 5 season) 2023 03/14/2021, 09/06/2020, 08/04/2020 Influenza Vaccine (#1) 2023 RSV Immunization Patients 60 + Years Old (1 - 1-dose 75+ series) 2036 HIB Vaccines Aged Out No longer eligi ble based on patient's age to complete this topic HPV Vaccines Aged Out No longer eligi ble based on patient's age to complete this topic Hepatitis A Vaccines Aged Out No long er eligible based on patient's age to complete this topic Hepatitis B Vaccines Aged Out No long er eligible based on patient's age to complete this topic IPV Vaccines Aged Out No longer eligi ble based on patient's age to complete this topic MMR Vaccines Aged Out No longer eligi ble based on patient's age to complete this topic Meningococcal ACWY Vaccine Aged Out N o longer eligible based on patient's age to complete this topic RSV Immunization Patients Under 20 months Aged Out No longer eligible b ased on patient's age to complete this topic Varicella Vaccines Aged Out No longer eligible based on patient's age to complete this topic
--- OUTSIDE RECORDS SUMMARY | 2024-04-29 11:37 | XMS_ITS | Clinical Summary ---
Author Organization [facility] [facility] [employer] Address [address] [place] [address] [address] [place] [address] Care Team Providers Care Echocardiography Tech Name Role Phone Unavailable Primary Care Provider Unavailabl e Allergies No known active allergies Social History Tobacco Use Types Packs/Day Years Used Date Smoking Tobacco: Never Assessed Sex and Gender Information Value Date Recorded Sex Assigned at Male 02/05/2022 10:19 AM EDT Legal Sex Male 10:19 AM EDT Gender Identity Male 02/05/2022 10:19 AM EDT Sexual Orientation Straight 02/05/2022 10 :19 AM EDT Last Filed Vital Signs Vital Sign Reading Time Taken Comments Blood Pressure 121/72 05/14/2023 10:12 AM EST Pulse - - Temperature - - Respiratory Rate - - Oxygen Saturation - - Inhaled Oxygen Concentration - - Weight - - Height - - Body Mass Index - - Plan of Treatment Health Maintenance Due Date Last Done Comments CT Colonography 1961 Colonoscopy 1961 Colorectal Cancer Screening 1961 Dental Prophylaxis 1961 Depression Screening 1961 FIT DNA/Cologuard 1961 FIT 1961 FOBT 1961 HIV Screening 1961 Lipid Panel 1961 SDOH Screening 1961 Sigmoidoscopy 1961 Alcohol/Substance Use Screening 1973 Tobacco Screening 1973 Hepatitis C Screening 06/19/1979 Dental Oral Exam 07/14/2009 01/12/2009 Dental X-Ray: Bitewings 01/05/2010 01/04/2009 Zoster Vaccines (1 of 2) 06/19/2011 COVID-19 Vaccine ( season) 2023 05/08/2022, 03/14/2021, 09/06/2020, Additional history exists Influenza Vaccine (#1) 2023 04/11/2022 Dental X-Ray: Full Mouth 05/15/2026 024, 10/26/2019, 01/04/2009 DTaP/Tdap/Td Vaccines (2 - Td or Tdap) 08/07/2032 08/07/2022 RSV Patients and Patients Aged 60 years or older (1 - 1-dose 75+ series) 2036 HIB [...] patient's age to complete this topic Meningococcal Vaccine Aged Out No lis todd eligible based on patient's age to complete this topic Pneumococcal Vaccine: Pediatrics (0 to 5 Years) and At-Risk Patients (6 to 64 Years) Aged Out No longer eligible based on patient's age to complete this topic RSV under 20 months Aged Out No longe r eligible based on patient's age to complete this topic Rotavirus Vaccines Aged Out No longer eligible based on patient's age to complete this topic Procedures Procedure Name Priority Date/Time Associated Diagnosis Comments PANORAMIC RADIOGRAPHIC IMAGE Routine 05/14/2023 10:00 AM EST COMPREHENSIVE ORAL EVALUATION - NEW OR ESTABLISHED PATIENT Routine 01/12/2009 12:00 AM EDT DIAGNOSTIC - DIAGNOSTIC IMAGING - INTRAORAL - COMPREHENSIVE SERIES OF RADIOGRAPHIC IMAGES Routine 01/04/2009 12:00 AM EDT from Last 3 Months or Most Recently Relevant to Health Maintenance Insurance [facility] MEDICAID STAND ADULT
--- OUTSIDE RECORDS SUMMARY | 2024-04-29 11:38 | XMS_ITS ---
Author Organization Flavio Zhang III, MD Address [address] [place] [address] Care Team Providers Care Nurse Healthcare Manager Name Role Phone Flavio Zhang Primary Care Provider [phone] REASON FOR VISIT Rx Request Social History Sex Assigned At : Social History Observation Description Sex Assigned At Male Encounters Encounter Location Date Provider Diagnosis Flavio Zhang III, MD [address] [place] [address] [place] [address] 11/29/2023 Flavio Zhang Plan Of Treatment Next Appt Details Provider Name:Flavio Zhang, 05/20/2024 03:00:00 PM, [address] [place] [address] [address], [place], [address], Provider Name:Flavio Zhang, 11/23/2024 03:00:00 PM, [address] [place] [address] [place], [address], Progress Notes * ALVIN DIEHLDOB:1960 (63 yo M)Acc No.[id number]:11/29/2023 Patient:?ALVIN DIEHL :1960???Age:63 Y???Sex:Male Address: [place], [address] * true * Date:? Generated for Printi ng/Faxing/eTransmitting on:?04/29/2024 11:37 AM EST
--- OUTSIDE RECORDS SUMMARY | 2024-04-29 11:38 | XMS_ITS ---
Author Organization Flavio Zhang III, MD Address [address] [place] [address] [place] [address] Care Team Providers Care Talent Engineer Name Role Phone Flavio Zhang Primary Care Provider [phone] Medications Medication SIG (Take, Route, Fr equency, Duration) Notes Start Date End Date Status predniSONE 20 MG 1 tablet with food o r milk Orally Once a day for 10 days 11/29/2023 12/19/2023 Active Social History Sex Assigned At : Social History Observation Description Sex Assigned At Male Encounters Encounter Location Date Provider Diagnosis Flavio Zhang III, MD [address] [place] [address] [place] [address] 11/29/2023 Flavio Zhang Plan Of Treatment Medication Medication Name Sig Start Date Stop Date Notes predniSONE 20 MG 1 tablet with food o r milk Orally Once a day for 10 days 11/29/2023 12/19/2023 Next Appt Details Provider Name:Flavio Zhang, 05/20/2024 03:00:00 PM, [address] [place] [address] [place], [address], Provider Name:Flavio Zhang, 11/23/2024 03:00:00 PM, [address] [place] [address] [place], [address], Progress Notes * ALVIN DIEHLDOB:1960 (63 yo M)Acc No.[id number]:11/29/2023 Patient:?SHANITAALVIN :1960???Age:63 Y???Sex:Male Address:[address] [place] [address], [place], [address] * Refills? Start predniSONE Tablet, 20 MG, Orally, 10 Tablet, 1 tablet with food or milk, Once a day, 10 days, Refills=1 * true * Date:? Generated for Nydia cristobal/Win/Lilianaitting on:?04/29/2024 11:37 AM EST
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
== END 2024-04-29 10:29 | disposition home or self-care (01) ==
LOC: HO.XRAY 10:28
PROVIDERS: Visit Provider Internal Medicine Medical Oncology
DX: R13.10 Dysphagia, unspecified (principal); R07.2 Precordial pain
CPT/HCPCS: 74230; 92611

== ENCOUNTER → 2024-04-29 10:35 | Outpatient (BNV) | payer MEDICARE, SELFPAY | PROVIDERS: Visit Provider Physician Assistant Surgical | DX: R13.10 Dysphagia, unspecified (principal) | CPT/HCPCS: 74230 ==

== ENCOUNTER 2024-06-05 11:47 | Outpatient (AMB) | payer MEDICARE, SELFPAY ==
--- NOTE | 2024-06-05 12:05 | A.OFFVIS_ITS ---
Vital Signs 06/05/24 12:06 Height 5 ft 9 in Weight 190 lb 0.615 oz BMI 28.1 BP 108/56 L Blood Pressure Location Rt brachial Position Sitting Pulse 58 Pulse Source Pulse Oximeter Pulse Oximetry (%) 93 Oxygen Delivery Method Room Air Intake Visit Reasons: Colonoscopy Screening Intake Note: NEW PATIENT for 2nd lifetime colo recall. Negative stool tests per PCP. Last ~ [address] [facility] per PCP Note. Chief Complaint; C/O reflux related concerns. Pt denies any burning sensation but reports dysphagia and intermittent foreign body sensation. Pt has dental related hx and is unable to chew food adequately and believes that this could be related. No additional concerns per pt. Small Craft Operator Required: No Allergies No Known Allergies [No Known Allergies*] Allergy (Verified 06/05/24 12:06) HPI HPI Colonoscopy Screening: Details: 63 Year old? male here today for pre colonoscopy screening.? Patient was sent to us by his PCP.? Last colonoscopy was with Dr. Rios in 2012. Patient reports frequent dysphagia depending on what he eats. Unable to chew his food very well. Currently not on any PPI. Reports also acid reflux significant depending on what he eats.? Denies any personal or family history of gastrointestinal disease, colon polyps, or CRC.? Denies history of difficulty with sedation or anesthesia in the past.? Negative for history of sleep apnea.? Denies any history of cardiac, renal, pulmonary, or hepatic disease.?? No history of infectious? diseases like hepatitis A, B, C, HIV or tuberculosis.? Patient is not on any anticoagulation [facility] Medical History Traumatic brain injury (~2000) Hypersomnia Snoring Cognitive change Abscess of skin and subcutaneous tissue Cluster headaches No known health problems Surgical History History of back surgery History of surgery on lower extremity Social History Alcohol intake: never Review of Systems Const Denies weight gain and Denies weight loss ENT Reports no additional complaints, Reports dysphagia and Denies odynophagia Card Reports no additional complaints Resp Reports no additional complaints GI Denies abdominal pain, Denies belching, Denies melena, Denies bloating, Denies change in bowel habits, Reports dysphagia, Denies excessive flatus, Denies dyspepsia, Reports heartburn, Denies diarrhea, Denies loose stools, Denies nausea, Denies odynophagia and Denies vomiting Reports no additional complaints Musc Reports no additional complaints Neuro Reports no additional complaints Psych Reports no additional complaints Endo Reports no additional complaints Physical Exam Vital Signs: Last Vital Signs Pulse 58 06/05/24 12:06 BP 108/56 L 06/05/24 12:06 Pulse Ox 93 06/05/24 12:06 Oxygen Delivery Method Room Air 06/05/24 12:06 BMI result Body Mass Index 28.1 Const General: healthy appearing, no acute distress and well developed Nutritional Appearance: well nourished Orientation/consciousness: patient oriented x3 Resp Effort & Inspection: normal respiratory effort, able to speak in complete senten sharmin, no tracheal deviation and symmetric chest movement Auscultation: clear to auscultation bilaterally Cardio Rate: regular rate GI Inspection: Yes normal to inspection and No distended Palpation (GI): Soft to palpation, not firm, nontender and No hepatosplenomegaly present Auscultation: normal bowel sounds General: Yes no CVA tenderness Back/Spine/Pelvis Back: no CVA tenderness Skin General skin exam: elasticity normal, turgor normal and dry skin Neuro General: patient oriented x3 Psych Appearance: grossly normal Mental Status: mental status grossly normal Assessment & Plan Assessment & Plan (1) Screen for colon cancer: Code(s): Z12.11 - Encounter for screening for malignant neoplasm of colon (2) Dysphagia: Code(s): R13.10 - Dysphagia, unspecified Qualifiers: Dysphagia type: pharyngoesophageal phase Qualified Code(s): R13.14 - Dysphagia, pharyngoesophageal phase (3) GERD (gastroesophageal reflux disease): Code(s): K21.9 - Gastro-esophageal reflux disease without esophagitis Qualifiers: Esophagitis presence: esophagitis presence not specified Qualified Code(s): K21.9 - Gastro-esophageal reflux disease without esophagitis Plan Patient will be sent for upper GI series with barium swallow to rule out Schatzki ring, achalasia, find the reason for his swallowing issues. Patient was encouraged to drink fluids when eating solid food and shoe slowly and carefully. Sitting upright when he tries to swallow. We will be sending him also for upper endoscopy. Message sent to Surgical schedule to book both procedures for patient. As mentioned above in HPI patient had colonoscopy in 2012. What to expect before during and after procedure discussed with patient. Stressed the importance of good bowel prep and clear liquid diet day before procedure. I will start patient on pantoprazole daily. Patient was encouraged to avoid dietary triggers in late night snacking. Staying upright her minimal 3 hours after meals discussed with patient. Patient has no history of sleep apnea, however documented history of snoring in the past. Patient is not on any anticoagulation medication and reports no adverse effect with anesthesia in the past. Patient will be seen after the procedure, sooner on as needed basis. He is agreeable to this plan and verbalizes understanding of instructions. He was given the opportunity to ask questions and all questions answered. Thank you for allowing me to participate in his care Orders: Orders FL upper GI w Ba Swallow 06/05/24 K21.9 - Gastro-esophageal reflux disease without esophagitis Medications: New pantoprazole 20 mg PO DAILY 90 tabs 1RF bisacodyl (Dulcolax (bisacodyl)) take 4 tabs at noon the day before your colonoscopy 20 mg (4 x 5 mg) PO ONCE 4 tabs 0RF 1 day Z12.11 - Encounter for screening for malignant neoplasm of colon polyethylene glycol 3350 (Miralax) As directed by gastroenterology department at [facility] 238 grams PO ONCE 238 grams 0RF Z12.11 - Encounter for screening for malignant neoplasm of colon Coding Level of Care Code New Pt Level 4 (85482) Diagnoses Screen for colon cancer Z12.11 Pharyngoesophageal dysphagia R13.14 Dysphagia type: pharyngoesophageal phase Gastroesophageal reflux disease, unspecified whether esophagitis present K21.9 Esophagitis presence: esophagitis presence not specified Time Spent (min) 45 Comment 30 minutes spent with patient and additional 15 minutes spent reviewing his records
[2024-06-05 12:06] VITALS: BP 108/56; PULSE 58; O2SAT 93; BMI 28.1
--- OUTSIDE RECORDS SUMMARY | 2024-06-05 14:07 | XMS_ITS ---
Author Organization Flavio Zhang III, MD Address [address] [place] [address] [place] [address] Care Team Providers Care Electronic Sales And Service Technician Name Role Phone Flavio Zhang Primary Care Provider Medications Medication SIG (Take, Route, Fr equency, Duration) Notes Start Date End Date Status predniSONE 20 MG 1 tablet with food o r milk Orally Once a day for 10 days 11/29/2023 12/19/2023 Active Social History Sex Assigned At : Social History Observation Description Sex Assigned At Male Encounters Encounter Location Date Provider Diagnosis Flavio Zhang III, MD [address] [place] [address] [place] [address] 11/29/2023 Flavio Zhang Plan Of Treatment Medication Medication Name Sig Start Date Stop Date Notes predniSONE 20 MG 1 tablet with food o r milk Orally Once a day for 10 days 11/29/2023 12/19/2023 Next Appt Details Provider Name:Flavio Zhang, 07/23/2024 10:00:00 AM, [address] [place] [address] [place], [address], Provider Name:Flavio Zhang, 11/23/2024 03:00:00 PM, [address] [place] [address] [place], [address], Progress Notes * ALVIN DIEHLDOB:1960 (63 yo M)Acc No.[id number]:11/29/2023 Patient:?SHANITA ALVIN :1960???Age:63 Y???Sex:Male Address:[address] [place] [address] [place], [address] * Refills? Start predniSONE Tablet, 20 MG, Orally, 10 Tablet, 1 tablet with food or milk, Once a day, 10 days, Refills=1 * true * Date:? Generated for Nydia cristobal/Win/Lilianaitting on:?06/05/2024 02:07 PM EST
--- OUTSIDE RECORDS SUMMARY | 2024-06-05 14:07 | XMS_ITS | Clinical Summary ---
Author Organization [facility] [employer] Address [address] [place] [address] [address] [place] [address] Care Team Providers Care Program Lead Name Role Phone Unavailable Primary Care Provider [...] 07/14/2009 01/12/2009 Dental X-Ray: Bitewings 01/05/2010 01/04/2009 Pneumococcal Vaccine: 50+ Years (1 of 1 - PCV) 06/19/2011 Zoster Vaccines (1 of 2) 06/19/2011 COVID-19 [...] ESTABLISHED PATIENT Routine 01/12/2009 12:00 AM EDT INTRAORAL - COMPLETE SERIES OF RADIOGRAPHIC IMAGES Routine 01/04/2009 12:00 AM EDT from Last 3 Months or Most Recently Relevant to Health Maintenance Insurance [facility] MEDICAID STAND ADULT
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
--- OUTSIDE RECORDS SUMMARY | 2024-06-05 14:07 | XMS_ITS | Clinical Summary ---
Author Organization [facility] it Address [address] [place] [address] Care Team Providers Care Head Of Strategy Name Role Phone Unavailable Primary Care Provider Unavailabl e Family History Relation Name Status Comments Father Mother Social History Tobacco Use Types Packs/Day Years Used Date Smoking Tobacco: Every Day Cigarettes Smokeless Tobacco: Never Sex and Gender Information Value Date Recorded Sex Assigned at Not on file Legal Sex Male 9:12 PM EST Gender Identity Not on file Sexual Orientation Not on file Obstetrics History Plan of Treatment Health Maintenance Due Date Last Done Comments DTaP,Tdap,and Td Vaccines (1 - Tdap) 1980 Pneumococcal Vaccine: 50+ Years (1 of 2 - PCV) 1980 Pneumococcal Vaccine: Pediatrics (0 to 5 Years) and At-Risk Patients (6 to 64 Years) (1 of 2 - PCV) 1980 Zoster Vaccines (1 of 2) 06/19/2011 [...] patient's age to complete this topic Meningococcal B Vacine Aged Out No lo nger eligible based on patient's age to complete this topic RSV Immunization Patients Under 20 months Aged Out No longer eligible b ased on patient's age to complete this topic Varicella Vaccines Aged Out No longer eligible based on patient's age to complete this topic
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
--- OUTSIDE RECORDS SUMMARY | 2024-06-05 14:08 | XMS_ITS ---
Author Organization Flavio Zhang III, MD Address [address] [place] [address] [place] [address] Care Team Providers Care Toll Lineman Name Role Phone Flavio Zhang Primary Care [...] Date Provider Diagnosis Flavio Zhang III, MD [address] [place] [address] [place] [address] 04/17/2024 Flavio Zhang Substernal chest clovis n [...] son: Follow-up after treatment Provider Name:Flavio Zhang, 07/23/2024 10:00:00 AM, [address] [facility] [place], [place], [address], Provider Name:Flavio Zhang, 11/23/2024 03:00:00 PM, [address] [place] [address] [address], [place], [address], Progress Notes * SUDHAALVIN QUINNDOB:1960 (63 yo M)Acc No.[id number]:04/17/2024 Patient:?ALVIN DIEHL Provider:?Flavio Zhang MD :1960???Age:63 Y???Sex:Male Claudio e:04/17/2024 Address:[address] [place], [place] [id number] Subjective: * Chief Complaints: * ???Sobsternal pain x 1 wkClu ster headachesBenign prostatic hypertrophyTobacco dependenceCOPDTraumatic brain injury * HPI: ???:?Telehealth?Location of provider rendering services:?{...} [address] [facility] [address] ?Location of patient:?address listed in demographics for [...] inguinal herniorrhaphy with mesh Colonoscopy age 51 [facility] No history * Hospitalization/Major Diagno stic [...] Tobacco Non-User?Ex-cigarette smoker ???He was born in [facility]. He is disabled. 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 He has no mormonism objection to blood products. He has a significant other, Mamie, who lives in [place]. * Medications:?TakingAcetamino phen Extra Strength 500 MG [...] Provider:?Flavio Zhang MD Date:?04/08 Generated for Nydia cristobal/Win/Helen on:?06/05/2024 02:07 PM EST History and Physical Notes * HPI (History of Present Illness) Category Sub-Category Detail Notes Telehealth Location of [facility] rendering services:: {...} [address] [facility] [address] Location of patient:: address listed in demographics [...]
== END 2024-06-05 14:25 | disposition home or self-care (01) ==
PROVIDERS: Visit Provider Nurse Practitioner Family
DX: R13.14 Dysphagia, pharyngoesophageal phase (principal); K21.9 Gastro-esophageal reflux disease without esophagitis; Z12.11 Encounter for screening for malignant neoplasm of colon
CPT/HCPCS: 99204

== ENCOUNTER → 2024-06-05 11:47 | Outpatient (BNVA) | payer MEDICARE, SELFPAY | PROVIDERS: Visit Provider Nurse Practitioner Family | DX: Z01.818 Encounter for other preprocedural examination (principal); R13.10 Dysphagia, unspecified; K21.9 Gastro-esophageal reflux disease without esophagitis | CPT/HCPCS: 99202 ==

== ENCOUNTER 2024-08-28 08:20 | Outpatient (REF) | payer MEDICARE, SELFPAY ==
--- NOTE | ~2024-08-28 | FL_ITS ---
EXAMINATION: XR FLUOROSCOPY UPPER GI SERIES CLINICAL INFORMATION: 64-year-old male complaining of GERD with history of hiatus hernia. History of esophageal dilatation. COMPARISON: Modified barium swallow 04/29/2024. TECHNIQUE: Fluoroscopic air contrast upper GI examination was performed utilizing standard techniques with thin and thick barium and effervescent granules. Numerous spot images were obtained. Several fluoroscopic image hold cine sequences were also obtained. FINDINGS: UPPER GI SERIES: Lateral cine images of the oropharynx and hypopharynx demonstrate normal swallow mechanism with normal epiglottic inversion and soft palate elevation. No laryngeal penetration, glottic or subglottic aspiration identified. No nasopharyngeal reflux present. Hypopharyngeal structures appear normal without evidence of mass or diverticulum. There was no significant cricopharyngeal achalasia. Dual and single contrast images of the esophagus demonstrate normal caliber, contour, and mucosal pattern. No evidence of stricture, mass, or ulcerations identified. Esophageal peristalsis was normal. Small type I hiatus hernia present. Episodic gastroesophageal reflux noted to the level of the thoracic inlet. Dual contrast and single contrast images of the stomach demonstrated normal contour . There is thickening of the gastric rugal folds. There is thickening of the areae gastricae of the stomach suggesting gastritis. No gross ulceration or mass identified. Contrast freely passed into the gastric antrum and duodenal bulb without delay. Single and air-contrast images of the duodenal bulb demonstrate no abnormality. The duodenal sweep has a normal appearance, course, and mucosal fold appearance. FLUOROSCOPY TIME: 2 minutes, 25 seconds Number of Spot Images:9 Number of cines obtained: 9 Dose = 84.41 mGy FL/FL upper GI w Ba Swallow IMPRESSION: 1. Mildly disordered esophageal peristalsis. 2. Small type I hiatus hernia. 3. Gastroesophageal reflux episodically to the level of the thoracic inlet. 4. Thickened gastric rugal folds and prominence of the gastric areae gastricae, all suggestive of gastritis. Electronically signed by: Ravi Javier MD 08/28/2024 09:59 AM EDT
--- OUTSIDE RECORDS SUMMARY | 2024-08-28 08:25 | XMS_ITS ---
Author Organization Flavio Zhang III, MD Address [address] [place] [address] [place] [address] Care Team Providers Care Pin Inserter Name Role Phone Flavio Zhang Primary Care Provider [phone] Allergies Allergen (clinical drug ingredient) Drug/Non Drug [...] Problem Status W/U Status Risk Notes Problem 115883567 Moderate cognitive impairment (R41.89) Active confirmed A recent MRI showed no new findings other than the old traumatic injury. His mental status is unchanged from prior examinations. No change in his therapy as needed. Problem 464505657 Chronic GERD (K21.9) Active confirmed His barium [...] Provider Diagnosis Flavio Zhang III, MD [address] [place] [address] [place] [address] 05/20/2024 Flavio Zhang Moderate cognitive impairment R41.89 [...] tests Provider Name:Flavio Zhang, 11/23/2024 03:00:00 PM, [address] [place] [address] [address] [place] [address], [place], [address], Progress Notes * ALVIN DIEHLDOB:1960 (63 yo M)Acc No.[id number]:05/20/2024 Progress Notes Patient:?ALVIN DIEHL Provider:?Flavio Zhang MD :1960???Age:63 Y???Sex:Male Claudio e:05/20/2024 Address:[address] [place], [place] [address] Subjective: * Chief Complaints: * ???Reflux esophagitisCluster [...] inguinal herniorrhaphy with mesh Colonoscopy age 51 [facility] No history * Hospitalization/Major Diagno stic [...] Tobacco Non-User?Ex-cigarette smoker ???He was born in [facility]. He is disabled. 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 He has no jain objection to blood products. He has a significant other, Mamie, who lives in [place]. * Medications:?TakingTriamcino lone Acetonide 0.1 % Cream [...] Zhang MD Date:?05/09 Generated for Nydia cristobal/Win/eTransmitting on:?08/28/2024 08:25 AM EDT History and Physical Notes * [...]
== END 2024-08-28 08:21 | disposition home or self-care (01) ==
LOC: HO.XRAY 08:20
PROVIDERS: PCP Internal Medicine Medical Oncology; Visit Provider Nurse Practitioner Family
DX: K21.9 Gastro-esophageal reflux disease without esophagitis (principal)
CPT/HCPCS: 74240

== ENCOUNTER → 2024-08-28 09:00 | Outpatient (BNV) | payer MEDICARE, SELFPAY | PROVIDERS: PCP Internal Medicine Medical Oncology; Visit Provider Radiology Diagnostic Radiology | DX: K21.9 Gastro-esophageal reflux disease without esophagitis (principal) | CPT/HCPCS: 74246 ==

== ENCOUNTER 2024-09-09 08:19 | Day surgery (SDC) | payer MEDICARE, SELFPAY ==
--- OUTSIDE RECORDS SUMMARY | 2024-08-14 08:27 | XMS_ITS ---
Author Organization Flavio Zhang III, MD Address [address] [place] [address] [place] [address] Care Team Providers Care Assembling Inspector Name Role Phone Flavio Zhang Primary Care [...] Problem Status W/U Status Risk Notes Problem [id number] Moderate cognitive impairment (R41.89) Active confirmed A recent MRI showed no new findings other than the old traumatic injury. His mental status is unchanged from prior examinations. No change in his therapy as needed. Problem [id number] Chronic GERD (K21.9) Active confirmed His barium [...] Provider Diagnosis Flavio Zhang III, MD [address] [place] [address] [place] [address] 05/20/2024 Flavio Zhang Moderate cognitive impairment R41.89 [...] Provider Name:Flavio Zhang, 11/23/2024 03:00:00 PM, [address] [place] [address] [address] [place] [address], [place], [address], Progress Notes * ALVIN DIEHLDOB:1960 (63 yo M)Acc No.[id number]:05/20/2024 Progress Notes Patient:?ALVIN DIEHL Provider:?Flavio Zhang MD :1960???Age:63 Y???Sex:Male Claudio e:05/20/2024 Address:[address] [place], [place] [id number] Subjective: * Chief Complaints: * ???Reflux esophagitisCluster [...] inguinal herniorrhaphy with mesh Colonoscopy age 51 [facility] No history * Hospitalization/Major Diagno stic Procedure:?No [...] Tobacco Non-User?Ex-cigarette smoker ???He was born in [facility]. He is disabled. 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 He has no synagogue objection to blood products. He has a significant other, Mamie, who lives in [place]. * Medications:?TakingTriamcino lone Acetonide 0.1 % Cream [...] Provider:?Flavio Zhang MD Date:?05/09 Generated for Nydia cristobal/Win/eTransmitting on:?08/14/2024 08:26 AM EDT History and Physical Notes * [...]
--- OUTSIDE RECORDS SUMMARY | 2024-08-14 08:27 | XMS_ITS ---
Author Organization Flavio Zhang III, MD Address [address] [facility] [place] [address] Care Team Providers Care Sterile Supervisor Name Role Phone Flavio Zhang Primary Care Provider [phone] REASON FOR VISIT follow up Social History Sex Assigned At : Social History Observation Description Sex Assigned At Male Encounters Encounter Location Date Provider Diagnosis Flavio Zhang III, MD [address] [place] [address] [address] [place] [address] 07/23/2024 Flavio Zhang Plan Of Treatment Next Appt Details Provider Name:Flavio Zhang, 11/23/2024 03:00:00 PM, [address] [place] [address] [address], [place], [address], Progress Notes * ALVIN DIEHLDOB:1960 (64 yo M)Acc No.[id number]:07/23/2024 Progress Notes Patient:?ALVIN DIEHL Provider:?Flavio Zhang MD :1960???Age:64 Y???Sex:Male Claudio e:07/23/2024 Address:[address] [place] [address] [id number] Subjective: * Chief Complaints: * ???1. Follow up. * Medical History:? Objective: * Vitals:? Assessment: Plan: * Treatment: * Images: * The named appointment provid er may or may not be the originator of this progress note, and it is not deemed complete until electronically signed by the appointment provider. Sign off status: Pending * Provider:?Flavio Zhang MD Date:?07/07 Generated for Nydia cristobal/Win/Helen on:?08/14/2024 08:27 AM EDT
--- OUTSIDE RECORDS SUMMARY | 2024-08-14 08:27 | XMS_ITS | Clinical Summary ---
Author Organization [employer] Address [address] [place] [address] [address] [place] [address] Care Team Providers Care Public Health Name Role Phone Unavailable Primary Care Provider [...] Most Recently Relevant to Health Maintenance Insurance [facility] MEDICAID STAND ADULT
--- OUTSIDE RECORDS SUMMARY | 2024-08-14 08:28 | XMS_ITS | Clinical Summary ---
Author Organization [facility] it Address [address] [place] [address] Care Team Providers Care Cup Trimming Machine Operator Name Role Phone Unavailable Primary Care Provider [...] Influencers of Health Screening 03/10/2022 COVID-19 Vaccine ( - 2023-2 5 season) 2023 03/14/2021, 09/06/2020, 08/04/2020 Influenza Vaccine (Season Ended) 2024 RSV Immunization Adult Patients (1 - 1-dose 75+ series) 2036 HIB [...] age to complete this topic Meningococcal B Vaccine Aged Out No l onger eligible based on patient's age to complete this topic RSV Immunization Patients Under 20 months Aged Out No longer eligible b ased on patient's age to complete this topic Varicella Vaccines Aged Out No longer eligible based on patient's age to complete this topic
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
[2024-09-09 09:12] VITALS: BMI 26.4
[2024-09-09 09:19] VITALS: BP 138/80; PULSE 56; RESP 16; TEMP 36.6; O2SAT 95
[2024-09-09] MEDS: Lactated Ringers 1,000 ML 100 ML IVCONT (09:33)
--- NOTE | 2024-09-09 10:02 | P.HPSUR_ITS ---
Pre-Procedural Eval Section A - 24 Hr Update-Section A only Date of Service: 09/09/24 Section B - Complete if H&P > 30 days Chief Complaint: dysphagia,screening,gerd Relevant Family History (Specify if Yes): No Relevant Social History: None Present Medications: see Short Stay Collaborative assessment Medical History: Significant History (Traumatic brain injury (~2000) Hypersomnia Snoring Cognitive change Abscess of skin and subcutaneous tissue Cluster headaches) History of Previous Operations: Relevant previous surgery/procedure and date(s) ( History of back surgery History of surgery on lower extremity) Allergies: Allergies Allergy/AdvReac Type Severity Reaction Status Date / Time No Known Allergies Allergy Verified 06/05/24 12:06 [No Known Allergies*] Review of Systems Sugical H&P ROS: Negative: Constitution, Cardiovascular, Respiratory, N eurological, Psychiatric, Hem-Onc, Allergic/Immunologic, Gastrointestinal, Genitourinary, Musculoskeletal, Integumentary, Endocrine and Eyes/Ears/Nose/Throat Exam Surgical H&P Exam: Normal: HEENT, Normal: Heart, Normal: Lungs, Normal: Extremities, Normal: Abdomen, Normal: Skin and Normal: Neurological Plan Diagnosis/Plan: Unchanged I have reviewed the history and physical and performed a pertinent physical examination on my patient. No changes have occurred unless specified. Time Spent With Patient Time: Total time managing care of this patient today ____ minutes.
--- NOTE | 2024-09-09 12:05 | P.OPN-COLO_ITS ---
Colonoscopy Operative Note Operative Note Date of Service: 09/09/24 Narrative: Operative Information Procedure Description: EGD, Colonoscopy Indication: dysphagia, screening Anesthesia: MAC FLEXIBLE TRANSORAL UPPER GASTROINTESTINAL ENDOSCOPY AND COLONOSCOPY PROCEDURE NOTE UPPER ENDOSCOPY Consent: Indications for the procedure and potential complications of bleeding, perforation, reaction to medications and missed diagnosis were discussed with the patient and informed consent was obtained. Instrument: Olympus GIF H 190 J mid size upper endoscope Monitoring: Vital signs and clinical assessment, continuous EKG monitoring, Pulse oximetry, Carbon Dioxide monitoring and blood pressure monitoring were done throughout the procedure. Procedure: The patient was placed in the left lateral decubitis position and pre-procedure medications were administered and a bite block was placed. The endoscope was inserted into the mouth and advanced under direct vision to the third part of duodenum. A careful inspection was made as the upper endoscope was withdrawn including a retroflexed examination of the proximal stomach; Findings and interventions are described below. Findings: Larynx:normal Esophagus: GE junction at 38 cm, diaphragm hiatus at 40 cm, with 2 cm sliding hiatal hernia, schatzki ring, esophagitis dissicans superficialis noted - balloon dilation done at UES and LES to 18 mm, no tears seen Stomach: A collection of superficial ulcerations at the antrum and pyloric outlet from 8-12 mm, bx taken. Biopsies were obtained. Grade 2 flap valve on retroflexed examination of the cardia. Duodenum: bulbar duodenitis, bx taken Intervention: Biopsies as noted above, balloon dilation COLONOSCOPY Instrument: Olympus variable stiffness pediatric scope 190L Colonoscopy Monitoring: Vital signs and clinical assessment, continuous EKG monitoring, Pulse oximetry, Carbon Dioxide monitoring and blood pressure monitoring were done throughout the procedure. Colon withdrawal time was 15 minutes. Procedure: The patient was placed in the left lateral decubitis position and pre-procedure medications were administered. After a digital rectal examination of the ano-rectum, the video colonoscope was inserted into the rectum and advanced through the colon to the cecum/TI. The colonoscope was slowly withdrawn in a retrograde panoramic fashion and the colon mucosa was carefully examined including a retroflexed view of the rectum. Findings and interventions are described below. Procedure Difficulty:moderate Findings: Terminal Ileum-normal Cecum:normal Ascending Colon: normal Transverse Colon -normal Descending Colon: x1 sessile polyp 8-10 mm removed with cold snare Sigmoid Colon: x 3 sessile polyps 8-10 mm removed with cold snare and x 1 sessile polyp removed with cold forceps, 5-6 mm Rectum: Retroflexion with small-medium internal hemorrhoids, grade I Anorectum - normal Colon preparation: [place] Bowel Preparation Scale Right colon; 2 Transverse colon: 1-2 Left colon; 1-2 (0 = Unprepared colon segment with mucosa not seen due to solid stool that cannot be cleared. 1 = Portion of mucosa of the colon segment seen, but other areas of the colon segment not well seen due to staining, residual stool and/or opaque liquid. 2 = Minor amount of residual staining, small fragments of stool and/or opaque liquid, but mucosa of colon segment seen well. 3 = Entire mucosa of colon segment seen well with no residual staining, small fragments of stool or opaque liquid) Impression and Post Procedure Diagnosis: Endoscopy Findings: esophagitis schatzki ring hiatal hernia gastric ulcers duodenitis Colonoscopy Findings: colon polyps x 5 internal hemorrhoids Plan: Await Pathology results Repeat Colonoscopy in 1 year due to areas of fair prep or earlier if clinically indicated High fiber diet leaflet avoid straining at stool, epsom salts and sitz bath, anusol supps or cream repeat EGD in 3-6 month, check gastrin level, avoid nsaids, smoking and alcohol Above findings were reviewed with the patient and relevant handouts were provided if indicated.
[2024-09-09 12:13] VITALS: BP 106/65; PULSE 53; RESP 20; TEMP 36.1; O2SAT 90
[2024-09-09 12:28] VITALS: BP 115/75; PULSE 63; RESP 18; TEMP 36.1; O2SAT 94
[2024-09-13 04:28] LABS: Gastrin 24 pg/mL (<=100)
== END 2024-09-09 13:23 | disposition home or self-care (01) ==
PROVIDERS: PCP Internal Medicine Medical Oncology; Visit Provider Internal Medicine Gastroenterology
PROC: (CPT 45385; principal; 2024-09-09 11:20)
DX: Z12.11 Encounter for screening for malignant neoplasm of colon (principal); D12.5 Benign neoplasm of sigmoid colon; K63.5 Polyp of colon; K64.0 First degree hemorrhoids; R13.14 Dysphagia, pharyngoesophageal phase; K21.9 Gastro-esophageal reflux disease without esophagitis; K25.9 Gastric ulcer, unspecified as acute or chronic, without hemorrhage or perforation; K29.70 Gastritis, unspecified, without bleeding; K20.80 Other esophagitis without bleeding; K22.2 Esophageal obstruction; K29.80 Duodenitis without bleeding; K44.9 Diaphragmatic hernia without obstruction or gangrene; G44.009 Cluster headache syndrome, unspecified, not intractable; R41.89 Other symptoms and signs involving cognitive functions and awareness; G47.10 Hypersomnia, unspecified; R06.83 Snoring; Z87.820 Personal history of traumatic brain injury; Z98.890 Other specified postprocedural states
CPT/HCPCS: 45385; 45380; 43249; 43239; 36415; 82941; 88305; 88313; 88342; C1726; J2003; J2704; J3010

== ENCOUNTER → 2024-09-09 08:19 | Outpatient (BNV) | payer MEDICARE, SELFPAY | PROVIDERS: PCP Internal Medicine Medical Oncology; Visit Provider Internal Medicine Gastroenterology | DX: Z12.11 Encounter for screening for malignant neoplasm of colon (principal); D12.4 Benign neoplasm of descending colon; D12.5 Benign neoplasm of sigmoid colon; K64.0 First degree hemorrhoids; R13.10 Dysphagia, unspecified; K20.90 Esophagitis, unspecified without bleeding; K22.2 Esophageal obstruction; K25.9 Gastric ulcer, unspecified as acute or chronic, without hemorrhage or perforation; K29.80 Duodenitis without bleeding | CPT/HCPCS: 43239; 43249; 45385 ==

== ENCOUNTER 2024-09-16 15:21 | Outpatient (AMB) | payer MEDICARE, SELFPAY ==
[2024-09-16 15:23] VITALS: PULSE 67; O2SAT 99; BMI 26.8
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
--- OUTSIDE RECORDS SUMMARY | 2024-09-16 17:42 | XMS_ITS ---
Author Organization Flavio Zhang III, MD Address [address] [place] [address] [place] [address] Care Team Providers Care Entry Level Financial Analyst Name Role Phone Flavio Zhang Primary Care [...] Problem Status W/U Status Risk Notes Problem [id number] Moderate cognitive impairment (R41.89) Active confirmed A recent MRI showed no new findings other than the old traumatic injury. His mental status is unchanged from prior examinations. No change in his therapy as needed. Problem [id number] Chronic GERD (K21.9) Active confirmed His barium [...] 05/20/2024 Encounters Encounter Location Date Provider Diagnosis Flvaio Zhang III, MD [address] [place] [address] [place] [address] 05/20/2024 Flavio Zhang Moderate cognitive impairment R41.89 [...] tests Provider Name:Flavio Zhang, 11/23/2024 03:00:00 PM, [address] [place] [address] [address] [id number], [place], [address], Progress Notes * ALVIN DIEHLDOB:1960 (63 yo M)Acc No.[id number]:05/20/2024 Progress Notes Patient:?ALVIN DIEHL Provider:?Flavio Zhang MD :1960???Age:63 Y???Sex:Male Claudio e:05/20/2024 Address:[address] [place], [place] [id number] Subjective: * Chief Complaints: * ???Reflux esophagitisCluster [...] inguinal herniorrhaphy with mesh Colonoscopy age 51 [facility] No history * Hospitalization/Major Diagno stic [...] He is disabled. 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 He has no jewish objection to blood products. He has a significant other, Mamie, who lives in [place]. * Medications:?TakingTriamcino lone Acetonide 0.1 % Cream [...] Zhang MD Date:?05/09 Generated for Nydia cristobal/Win/eTransmitting on:?09/16/2024 05:42 PM EDT History and Physical Notes * HPI [...]
== END 2024-09-16 15:59 | disposition home or self-care (01) ==
LOC: HO.HSMS 15:22
PROVIDERS: Visit Provider Psychiatry & Neurology Neurology
DX: F02.B18 Dementia in other diseases classified elsewhere, moderate, with other behavioral disturbance (principal); G44.009 Cluster headache syndrome, unspecified, not intractable
CPT/HCPCS: 99214; G2211

== ENCOUNTER → 2024-09-16 15:21 | Outpatient (BNVA) | payer MEDICARE, SELFPAY | PROVIDERS: Visit Provider Psychiatry & Neurology Neurology | DX: G44.009 Cluster headache syndrome, unspecified, not intractable (principal); F02.B18 Dementia in other diseases classified elsewhere, moderate, with other behavioral disturbance | CPT/HCPCS: 99212 ==

== ENCOUNTER 2024-10-23 08:44 | Outpatient (REF) | payer MEDICARE, MEDICAID, SELFPAY ==
[2024-10-23 11:20] LABS: Lipase 42 U/L (8-78)
[2024-10-23 11:42] LABS: Folate 8.2 ng/mL (> or = 4.0); Vitamin B12 626 pg/mL (200-900)
[2024-11-01 15:58] LABS: Vitamin D 25-OH, D2 <4 ng/mL; Vitamin D 25-OH, D3 27 ng/mL; Vitamin D 25-OH, Total 27 ng/mL (30-100)
== END 2024-10-23 08:45 | disposition home or self-care (01) ==
LOC: HO.LAB 08:44
PROVIDERS: PCP Internal Medicine Medical Oncology; Visit Provider Nurse Practitioner Family
DX: R13.14 Dysphagia, pharyngoesophageal phase (principal); K21.00 Gastro-esophageal reflux disease with esophagitis, without bleeding; R14.0 Abdominal distension (gaseous); K59.01 Slow transit constipation; K22.2 Esophageal obstruction; K25.9 Gastric ulcer, unspecified as acute or chronic, without hemorrhage or perforation; K29.80 Duodenitis without bleeding; K44.9 Diaphragmatic hernia without obstruction or gangrene; K64.8 Other hemorrhoids; K63.5 Polyp of colon; Z98.890 Other specified postprocedural states; R10.9 Unspecified abdominal pain; R19.7 Diarrhea, unspecified; E55.9 Vitamin D deficiency, unspecified; R11.2 Nausea with vomiting, unspecified
CPT/HCPCS: 36415; 82306; 82607; 82746; 82941; 83690; 86364; 99212

== ENCOUNTER 2024-10-23 08:44 | Outpatient (AMB) | payer MEDICARE, SELFPAY ==
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
--- OUTSIDE RECORDS SUMMARY | 2024-10-23 08:49 | XMS_ITS | Clinical Summary ---
Author Organization [employer] Address [address] [place] [address] [address] [place] [address] Care Team Providers Care Java Web Engineer Name Role Phone Unavailable Primary Care Provider [...] Panel 1960 SDOH Screening 1960 Sigmoidoscopy 1960 Disability Screening 1960 Alcohol/Substance Use Screening 1973 Tobacco Screening 1973 Hepatitis C Screening 06/19/1979 Dental Oral Exam 07/14/2009 01/12/2009 Dental X-Ray: Bitewings 01/05/2010 01/04/2009 Pneumococcal Vaccine: 50+ Years (1 of 1 - PCV) 06/19/2011 Zoster Vaccines (1 of 2) 06/19/2011 COVID-19 Vaccine ( season) 2023 05/08/2022, 03/14/2021, 09/06/2020, Additional history exists Influenza Vaccine (#1) 2024 04/11/2022 Dental X-Ray: Full Mouth 05/15/2026 024, [...] Most Recently Relevant to Health Maintenance Insurance [facility] MEDICAID STAND ADULT
--- OUTSIDE RECORDS SUMMARY | 2024-10-23 08:49 | XMS_ITS | Clinical Summary ---
Author Organization [facility] it Address [address] [place] [address] Care Team Providers Care Director Of Safety Name Role Phone Unavailable Primary Care Provider [...] 1980 Pneumococcal Vaccine: 50+ Years (1 of 1 - PCV) 06/19/2011 Zoster Vaccines (1 of 2) 06/19/2011 COVID-19 Vaccine (4 - 2023-2 5 season) 2023 03/14/2021, 09/06/2020, 08/04/2020 Influenza Vaccine (#1) 2024 RSV Immunization Adult Patients (1 - [...]
[2024-10-23 08:57] VITALS: BP 113/58; PULSE 59; O2SAT 98; BMI 25.4
== END 2024-10-23 09:55 | disposition home or self-care (01) ==
LOC: HO.HGI 08:45
PROVIDERS: Visit Provider Nurse Practitioner Family
DX: R13.14 Dysphagia, pharyngoesophageal phase (principal); K21.9 Gastro-esophageal reflux disease without esophagitis; R14.0 Abdominal distension (gaseous); K59.01 Slow transit constipation
CPT/HCPCS: 99214; G2211

== ENCOUNTER 2024-12-16 12:55 | Outpatient (RCR) | payer MEDICARE, MEDICAID, SELFPAY ==
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
== END 2025-02-01 15:55 | disposition still patient (30) ==
LOC: HO.SH 12:55
PROVIDERS: PCP Internal Medicine Medical Oncology; Visit Provider Psychiatry & Neurology Neurology
DX: I69.911 Memory deficit following unspecified cerebrovascular disease (principal); F02.B18 Dementia in other diseases classified elsewhere, moderate, with other behavioral disturbance
CPT/HCPCS: 96125

== ENCOUNTER 2025-03-22 14:03 | Outpatient (AMB) | payer MEDICARE, MEDICAID, SELFPAY ==
--- OUTSIDE RECORDS SUMMARY | 2025-03-17 09:30 | XMS_ITS | Encounter Summary ---
Author Organization [email or web address] Address [address] [place] [address] Care Team Providers Care Rejogger Name Role Phone Unavailable Primary Care Provider Unavailabl e Reason for Visit * Reason Comments Consult Encounter Details Date Type Department Care Team ([facility] st Contact Info) Description 03/17/2025 9:30 AM EST Office Visit [facility] [address] [place], [place] [id number] Stef Hutchins DMD [address] [place] [address] Social History Tobacco Use Types Packs/Day Years Used Date Smoking Tobacco: Never Passive Smoke Exposure: Never Smokeless Tobacco: Never Alcohol Answer Date Recorded Frequency of Alcohol Consumption Not on file 02/19/2025 Average Number of Drinks Not on file 025 How often do you have six or more drinks on one occasion? 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; exostosis of the anterior buccal edentulous mandible; OCS otherwise bland Dx: bilateral buccal exostosis of the maxilla; exostosis of the anterior buccal mandible R/B/I/A for removal of bilateral buccal exostosis of the maxilla; exostosis of the anterior buccal mandible under local anesthesia reviewed NV: bilateral buccal exostosis of the maxilla; exostosis of the anterior buccal mandible under local anesthesia documented in this encounter Plan of Treatment Not on file documented as of this encounter Procedures Procedure Name Priority Date/Time Associated Diagnosis Comments CONSULTATION - DIAGNOSTIC SERVICE PROVIDED BY DENTIST OR PHYSICIAN OTHER THAN REQUESTING DENTIST OR PHYSICIAN Routine 03/17/2025 9:30 AM EST documented in this encounter Visit Diagnoses Not on filedocumented in this encounter
[2025-03-22 14:02] VITALS: BP 126/80; PULSE 66; O2SAT 95; BMI 28.6
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
--- OUTSIDE RECORDS SUMMARY | 2025-03-22 20:29 | XMS_ITS | Clinical Summary ---
Author Organization [facility] it Address [address] [place] [address] Care Team Providers Care Tabulating Machine Mechanic Name Role Phone Unavailable Primary Care Provider Unavailabl e Family History Relation Name Status Comments Father Mother Social History Tobacco Use Types Packs/Day Years Used Date Smoking Tobacco: Every Day Cigarettes Smokeless Tobacco: Never Sex and Gender Information Value Date Recorded Sex Assigned at Not on file Legal Sex Male 9:12 PM EST Gender Identity Not on file Sexual Orientation Not on file Plan of Treatment Health Maintenance Due Date Last Done Comments DTaP,Tdap,and Td Vaccines (1 - Tdap) 1979 Pneumococcal Vaccine: 50+ Years (1 of 1 - PCV) 06/19/2011 Zoster Vaccines (1 of 2) 06/19/2011 Depression Screening 04/08/2024 COVID-19 Vaccine (4 - 2024-2 6 season) 2024 03/14/2021, 09/06/2020, 08/04/2020 Influenza Vaccine (#1) 2024 [...]
--- OUTSIDE RECORDS SUMMARY | 2025-03-22 20:29 | XMS_ITS | Clinical Summary ---
Author Organization [employer] Address [address] [place] [address] Care Team Providers Care Stamps Or Coins Salesperson Name Role Phone Unavailable Primary Care Provider Unavailabl e Allergies No known active allergies Medications No known medications Active Problems No known active problems Encounters Date Type Department Care Team Description 03/17/2025 9:30 AM EST Office Visit [facility] [address] [place] [address] Stef Hutchins DMD 03/14/2025 Travel 03/11/2025 2:00 PM EST Office Visit [facility] [address] [place] [address] Marcin Scott DDS 03/08/2025 Travel 02/19/2025 2:30 PM EST Office Visit [facility] [address] [place] [address] Marcin Scott DDS 02/19/2025 Travel from Last 3 Months Social History Tobacco Use Types Packs/Day Years Used Date Smoking Tobacco: Never Passive Smoke Exposure: Never Smokeless Tobacco: Never Tobacco Cessation:Counseling Given: No Alcohol Answer Date Recorded Frequency of Alcohol [...] Health Maintenance Due Date Last Done Comments Anal Pap 1961 CT Colonography 1961 Colonoscopy 1961 Colorectal Cancer Screening 1961 Dental Prophylaxis 1961 Depression Screening 1961 FIT DNA/Cologuard 1961 FIT 1961 FOBT 1961 HIV Screening 1961 Lipid Panel 1961 SDOH Screening 1961 Sigmoidoscopy 1961 Disability Screening 1961 Hepatitis C Screening 06/19/1979 Hepatitis A Vaccines (1 of 2 - Risk 2-dose series) 1980 Dental Oral Exam 07/14/2009 01/12/2009 Dental X-Ray: Bitewings 01/05/2010 01/04/2009 Pneumococcal Vaccine: 50+ Years (1 of 1 - PCV) 06/19/2011 Zoster Vaccines (1 of 2) 06/19/2011 Hepatitis B Vaccines (1 of 3 - Risk 3-dose series) 2021 COVID-19 Vaccine ( season) 2024 05/08/2022, 03/14/2021, 09/06/2020, Additional history exists Influenza Vaccine (#1) 2024 04/11/2022 Alcohol/Substance Use Screening 02/19/2026 02/19/2025 Tobacco Screening 03/17/2026 03/17/2025 Dental X-Ray: Full Mouth 05/15/2026 024, 10/26/2019, [...] OR PHYSICIAN Routine 03/17/2025 9:30 AM EST RE-EVAL - POST-OP OFFICE VISIT Routine 03/11/2025 2:00 PM EST LIMITED ORAL EVALUATION - PROBLEM FOCUSED Routine 02/19/2025 2:30 PM EST CASE PRESENTATION, DETAILED AND EXTENSIVE TREATMENT PLANNING Routine 02/19/2025 2:30 PM EST DENTURE IMPRESSION Routine 02/19/2025 2: 30 PM EST PANORAMIC RADIOGRAPHIC IMAGE Routine 05/14/2023 10:00 AM EST COMPREHENSIVE ORAL EVALUATION - NEW OR ESTABLISHED PATIENT Routine 01/12/2009 12:00 AM EDT INTRAORAL - COMPLETE SERIES OF RADIOGRAPHIC IMAGES Routine 01/04/2009 12:00 AM EDT from Last 3 Months or Most Recently Relevant to Health Maintenance Insurance [place] AD[place]
== END 2025-03-22 14:31 | disposition home or self-care (01) ==
LOC: HO.HSMS 14:03
PROVIDERS: PCP Internal Medicine Medical Oncology; Visit Provider Psychiatry & Neurology Neurology
DX: F02.B18 Dementia in other diseases classified elsewhere, moderate, with other behavioral disturbance (principal); G44.009 Cluster headache syndrome, unspecified, not intractable
CPT/HCPCS: 99214; G2211

== ENCOUNTER → 2025-03-22 14:03 | Outpatient (BNVA) | payer MEDICARE, MEDICAID, SELFPAY | PROVIDERS: PCP Internal Medicine Medical Oncology; Visit Provider Psychiatry & Neurology Neurology | DX: G44.009 Cluster headache syndrome, unspecified, not intractable (principal); F02.B18 Dementia in other diseases classified elsewhere, moderate, with other behavioral disturbance | CPT/HCPCS: 99212 ==